=== PATIENT | male | born 1940 | race Caucasian/White ===

== ENCOUNTER → 2017-03-11 | Outpatient (CLI) | payer OTHER ==
[~2017-03-11] MED LIST: CALC-393 PO; CHOL100010 PO; GADAVIST IV PRN; GARL1200 PO; GARL400T4 PO; GLUC1TAB8 PO; INDO-22 PO; LISI-461 PO; LISI20TA3 PO; MULTTAB5 PO; OMEG10007 PO; PROB500T8 PO; TAMS0.4C38 PO; [UNRECOGNIZED DRUG - OTHER] OTL
--- NOTE | 2017-03-11 19:42 | DIAGNOSTIC IMAGING REPORT ---
L LOWER EXT NONJOINT COMBO CLINICAL HISTORY: 76 years-old Male presenting with MASS, LEFT SECOND toe, proximal PHALANX. TECHNIQUE: Multisequence, multiplanar MR imaging of the left forefoot was performed before and after the administration of intravenous contrast. IV contrast: 9.5 mL of Gadavist. COMPARISON: None. FINDINGS: Localizer images: Unremarkable. Superficial subcutaneous edema noted over the dorsum of the lateral forefoot. Normal bone marrow signal intensity. Cystic change noted medially at the head of the first metatarsal likely degenerative in etiology. No acute fracture or malalignment. Normal muscle bulk and muscle signal intensity. No fluid collection. Postcontrast imaging demonstrates no evidence of an enhancing mass. The clinical marker is noted along the plantar aspect of the second toe at the mid to distal phalanges. No abnormal signal intensity at this site or mass. IMPRESSION: Normal contrast-enhanced MR examination of the forefoot. No mass lesion at the site of clinical concern. Electronically signed by: Mansoor Soler M.D. 03/11/2017 7:40 PM Dictated Date/Time: 03/11/2017 7:37 PM
== END | disposition home or self-care (01) ==
LOC: C.MRI 06:36
PROVIDERS: ATTEND Podiatrist Foot & Ankle Surgery
DX: M79.672 Pain in left foot (principal); M79.671 Pain in right foot

== ENCOUNTER → 2017-06-02 | Day surgery (SDC) | payer OTHER ==
[2017-04-27 08:13] VITALS: Ht 171.5 cm; Wt 90.9 kg
[~2017-06-02] VITALS: Ht 171.5 cm; Wt 90.9 kg
[~2017-06-02] MED LIST changes: +500ML BSS 0.3ML EPI 1:1000PF IRRIG ONE; +ACETAMINOPHEN 325 MG TAB PO PRN; +AMVISC PLUS 0.8ML SYRINGE INT OCU ONE; +ATROPINE SULFATE 0.1 MG/ML 5ML SYR IV PRN; +BSS FLUSH ONE; -CHOL100010 PO; +EpHEDrine SULFATE INJ 50 MG/ML AMP IV PRN; +EpINEphrine INJ 1MG/ML AMP 1 MG/ML AMP ONE; -GADAVIST IV PRN; -GARL400T4 PO; -INDO-22 PO; +LACTATED RINGER'S 1000ML 500 ML IV SCH; +LIDOCAINE 3.5% OPH GEL PER APPLICATION CHARGE ONE; +LIDOCAINE HCL 1% MPF 2 ML VIAL ONE; -LISI-461 PO; +MIDAZOLAM HCL 1 MG/ML 2ML VIAL ONE; +OCUCOAT 1 ML SOLN IO ONE; +PHENYLEPHRINE HCL 10% OP SOLN PER DROP CHARGE OPR SCH; +POVIDONE-IODINE OP SOLN 30 ML BTL ONE; +PROPARACAINE 0.5% OP SOLN PER DROP CHARGE OPR SCH; +TOBRAMYCIN/DEXAMETHASONE OPH OINT PER APPLN CHARGE ONE; -[UNRECOGNIZED DRUG - OTHER] OTL
[2017-06-02] MEDS: PHENYLEPHRINE HCL 2.5% OP SOLN PER DROP CHARGE OPR SCH ×2 (11:04→11:09)
[2017-06-02] MEDS: TROPICAMIDE 1% OP SOLN PER DROP CHARGE OPR SCH ×2 (11:05→11:10)
[2017-06-02] MEDS: CYCLOPENTOLATE HCL 1% OP SOLN PER DROP CHARGE OPR SCH ×2 (11:06→11:11)
[2017-06-02] MEDS: KETOROLAC 0.5% OP SOLN PER DROP CHARGE OPR SCH ×2 (11:07→11:12)
[2017-06-02] MEDS: GATIFLOXACIN OP SOLN PER DROP CHARGE OPR SCH ×2 (11:08→11:19)
--- NOTE | 2017-06-02 11:33 | History & Physical Bridge - SC ---
H&P Re-Evaluation Bridge Note: I have examined the patient, reviewed the History & Physical and in the interval since the performance of the History & Physical I have noted the following changes of clinical significance: No changes noted
--- NOTE | 2017-06-02 12:05 | [facility] Operative Report ---
Operative Report Date of Service Jun 02, 2017. Operative Report 1. PREOPERATIVE DIAGNOSIS: Cataract of the right eye. 2. POSTOPERATIVE DIAGNOSIS: Same. 3. PROCEDURE: Phacoemulsification with intraocular lens implantation of the right eye. SURGEON: Dr. Rigo Mendoza. ANESTHESIA: Topical Lidocaine gel, 1% Non- Preserved intracameral Lidocaine, and monitored intravenous sedation. INDICATIONS FOR THE PROCEDURE: The patient is a 76 - year-old male with a history of cataract of the right eye causing significant visual impairment. The details of the proposed procedure were explained to the patient who asked appropriate questions and following discussion of all risks, benefits and alternatives agreed to have the procedure done. 4. OPERATION AND FINDINGS: DESCRIPTION OF PROCEDURE: After informed consent was obtained, the patient was brought to the Operating Room at the [facility]. The patient was placed in a supine position and then the right eye was prepped and draped in the usual sterile fashion for intraocular surgery. A drop of topical Lidocaine gel was placed in the operative eye. A wire lid speculum was then placed in the fornices. A corneal paracentesis was then created temporally. The Non-Preserved Lidocaine was then instilled into the anterior chamber. The anterior chamber was then pressurized with viscoelastic. A 2.0 mm clear corneal incision was then created temporally. A cystotome was inserted into the anterior chamber and used to create a tear in the anterior lens capsule. This capsular tear was then used to create a small flap and the flap was dragged in a counterclockwise direction in order to create a continuous curvilinear capsulorrhexis. Hydrodissection was accomplished with balanced salt solution. Phacoemulsification of the lens nucleus was then performed in a standard [id number] technique. The phaco time was 16 seconds with an average power of 13 %. The remaining cortical material was removed using irrigation aspiration. The capsular bag was then filled with viscoelastic. A Bausch [employer] Lomb MI60L +21.0 diopters lens was then loaded into the injector and injected into the capsular bag. The remaining viscoelastic was removed with the irrigation aspiration handpiece. The wound was hydrated and then checked and found to be watertight. The intraocular pressure was checked and found to be adequate. The wire lid speculum was removed and the patient's face was cleaned and dried. TobraDex ointment was placed in the inferior fornix. The patient was discharged to the Recovery Room having tolerated the procedure well. There were no complications. The patient will be seen tomorrow in the office for follow-up. I attest to the content of the Intraoperative Record and any orders documented therein. Any exceptions are noted below.
--- NOTE | 2017-06-02 12:06 | Discharge Instructions-SurgCtr ---
Discharge Instructions Date of Service Jun 02, 2017. Visit Reason for Visit: Cataract Right Eye Discharge Discharge Diagnosis / Problem: cataract Discharge Goals Goal(s): Improve function Activity Recommendations Activity Limitations: per Instructions/Follow-up section Anesthesia . Post Anesthesia Instructions: If you have had General Anesthesia or IV Sedation: * Do not drive today. * Resume driving when surgeon permits. * Do not make important decisions or sign legal documents today. * Call surgeon for: 1. Temperature elevations greater than 101 degrees F. 2. Uncontrollable pain. 3. Excessive bleeding. 4. Persistent nausea and vomiting. 5. Medication intolerance (nausea, vomiting or rash). * For nausea and vomiting use only clear liquids such as: tea, soda, bouillon until nausea subsides, then gradually increase diet as tolerated. * If you have any concerns or questions, call your surgeon's office. If physician is unavailable and it is an emergency, call 911 or go to the nearest emergency room. . Diet Recommendations Home Diet: resume previous diet Procedures Procedures Performed: Right Cataract Phacoemulsification With Intraocular Lens Implant Pending Studies Studies pending at discharge: no Medical Emergencies . Who to Call and When: Medical Emergencies: If at any time you feel your situation is an emergency, please call 911 immediately. . Non-Emergent Contact Non-Emergency issues call your: [facility] . . "Provider Documentation" section prepared by Rigo Mendoza. .
[2017-06-02 12:08] VITALS: TEMP 36.6
[2017-06-02 12:36] VITALS: BP 143/71; PULSE 61; O2SAT 99
--- NOTE | 2017-06-02 12:59 | Anesthesia Progress Nt - [facility] ---
Anesthesia Post Op Note Date & Time Jun 02, 2017 at 12:58 Vital Signs Pain Intensity: 0 Vital Signs Past 12 Hours Date Time Temp Pulse Resp B/P (MAP) Pulse Ox O2 Delivery O2 Flow Rate FiO2 06/02/17 12:36 61 12 143/71 (95) 99 Room Air 06/02/17 12:08 36.6 57 20 153/63 (93) 95 Room Air 06/02/17 10:57 36.7 65 16 134/83 (100) 93 Room Air Notes Mental Status: alert / awake / arousable, participated in evaluation Pt Amnestic to Procedure: Yes Nausea / Vomiting: adequately controlled Pain: adequately controlled Airway Patency, RR, SpO2: stable & adequate BP & HR: stable & adequate Hydration State: stable & adequate Anesthetic Complications: no major complications apparent
== END | disposition home or self-care (01) ==
LOC: X.SURG 10:39
PROVIDERS: ATTEND Ophthalmology
DX: H25.9 Unspecified age-related cataract (principal); J45.909 Unspecified asthma, uncomplicated; E78.5 Hyperlipidemia, unspecified; M17.11 Unilateral primary osteoarthritis, right knee; E66.9 Obesity, unspecified; F17.220 Nicotine dependence, chewing tobacco, uncomplicated; Z98.890 Other specified postprocedural states; Z88.8 Allergy status to other drugs, medicaments and biological substances; Z79.899 Other long term (current) drug therapy